=== PATIENT | male | born 1975 ===

== ENCOUNTER 2021-05-15 11:11 | Inpatient (IN) | payer SELFPAY ==
[2021-05-15] MEDS ORDERED: IPRATROPIUM 0.02% NEBU 2.5 ML IH ONE ×2 (11:36→12:50)
[2021-05-15] MEDS ORDERED: ALBUTEROL 2.5 MG/3 ML NEBU IH ONE ×2 (11:36→13:15)
[2021-05-15] MEDS ORDERED: MAGNESIUM SULFATE 2 GM/50 ML BAG IV ONE (12:34)
--- NOTE | 2021-05-15 12:38 | Emergency Department Report ---
ED Asthma HPI - General Chief Complaint: Adult Asthma Stated Complaint: ASTHMA PUI?: Yes Source: patient Mode of arrival: Ambulatory Limitations: Language Barrier - History of Present Illness MD Complaint: "asthma attack", shortness of breath, wheezing -: Gradual, days(s) Asthma History: adult onset, history of frequent attac Severity: moderate Context: recent URI, allergen exposure Associated Symptoms: dry cough. denies: fever, leg edema, syncope Treatments Prior to Arrival: inhaled bronchodilator, IV steroid, oxygen - Related Data Current Asthma Therapy: none Allergies Allergy/AdvReac Type Severity Reaction Status Date / Time No Known Allergies Allergy Unverified 05/15/21 13:05 ED Review of Systems ROS: Stated complaint: ASTHMA Other details as noted in HPI Comment: All other systems reviewed and negative Constitutional: denies: chills, fever Eyes: denies: eye pain, eye discharge, vision change ENT: denies: ear pain, throat pain Respiratory: see HPI, cough, shortness of breath, SOB with exertion, SOB at rest, wheezing Cardiovascular: denies: chest pain, palpitations Endocrine: no symptoms reported Gastrointestinal: denies: abdominal pain, nausea, diarrhea Genitourinary: denies: urgency, dysuria Musculoskeletal: denies: back pain, joint swelling, arthralgia Skin: denies: rash, lesions Neurological: denies: headache, weakness, paresthesias Psychiatric: denies: anxiety, depression Hematological/Lymphatic: denies: easy bleeding, easy bruising ED Past Medical Hx - Past Medical History Previous Medical History?: Yes Hx Asthma: Yes - Surgical History Past Surgical History?: No - Family History Family history: asthma - Social History Smoking Status: Never Smoker Substance Use Type: None ED Physical Exam - General Limitations: Language Barrier General appearance: in distress - Head Head exam: Present: atraumatic, normal inspection - Eye Eye exam: Present: normal appearance, PERRL, EOMI - ENT ENT exam: Present: normal exam, normal orophraynx, mucous membranes dry, TM's normal bilaterally, normal external ear exam - Neck Neck exam: Present: normal inspection, full ROM - Respiratory Respiratory exam: Present: wheezes, decreased breath sounds (Patient with diminished breath sounds and bilateral wheezes.) - Cardiovascular Cardiovascular Exam: Present: regular rate - GI/Abdominal GI/Abdominal exam: Present: soft. Absent: distended, tenderness, guarding, rebound - Extremities Exam Extremities exam: Present: normal inspection - Back Exam Back exam: Present: normal inspection, full ROM - Neurological Exam Neurological exam: Present: alert, oriented X3, CN II-XII intact, normal gait - Psychiatric Psychiatric exam: Present: normal affect, normal mood - Skin Skin exam: Present: warm, dry ED Course Vital Signs 05/15/21 05/15/21 05/15/21 11:34 11:45 12:00 Pulse Rate 96 H 93 H 95 H Pulse Rate [ Anterior Bilateral Throughout] Respiratory 14 15 20 Rate Respiratory Rate [Anterior Bilateral Throughout] Blood Pressure 140/78 149/71 O2 Sat by Pulse 88 96 97 Oximetry 05/15/21 05/15/21 05/15/21 12:01 12:15 12:30 Pulse Rate 100 H 99 H Pulse Rate [ Anterior Bilateral Throughout] Respiratory 16 22 Rate Respiratory Rate [Anterior Bilateral Throughout] Blood Pressure 129/79 129/79 O2 Sat by Pulse 96 97 97 Oximetry 05/15/21 05/15/21 05/15/21 12:45 13:00 13:01 Pulse Rate 107 H 104 H Pulse Rate [ 100 H Anterior Bilateral Throughout] Respiratory 20 26 H Rate Respiratory 20 Rate [Anterior Bilateral Throughout] Blood Pressure 139/74 123/78 O2 Sat by Pulse 98 100 Oximetry 05/15/21 05/15/21 05/15/21 13:15 13:31 13:47 Pulse Rate 104 H 99 H 102 H Pulse Rate [ Anterior Bilateral Throughout] Respiratory 15 21 19 Rate Respiratory Rate [Anterior Bilateral Throughout] Blood Pressure 118/53 121/79 O2 Sat by Pulse 98 99 96 Oximetry 05/15/21 05/15/21 05/15/21 14:00 14:16 14:30 Pulse Rate 101 H 98 H 96 H Pulse Rate [ Anterior Bilateral Throughout] Respiratory 20 15 19 Rate Respiratory Rate [Anterior Bilateral Throughout] Blood Pressure 123/69 110/73 117/64 O2 Sat by Pulse 97 99 94 Oximetry 05/15/21 05/15/21 05/15/21 14:46 15:00 15:16 Pulse Rate 94 H 98 H 90 Pulse Rate [ Anterior Bilateral Throughout] Respiratory 16 19 18 Rate Respiratory Rate [Anterior Bilateral Throughout] Blood Pressure 115/54 95/41 103/45 O2 Sat by Pulse 97 96 96 Oximetry 05/15/21 05/15/21 05/15/21 15:30 15:46 16:00 Pulse Rate 89 91 H 87 Pulse Rate [ Anterior Bilateral Throughout] Respiratory 19 21 22 Rate Respiratory Rate [Anterior Bilateral Throughout] Blood Pressure 97/42 105/48 106/29 O2 Sat by Pulse 94 94 95 Oximetry 05/15/21 16:46 Pulse Rate Pulse Rate [ Anterior Bilateral Throughout] Respiratory Rate Respiratory Rate [Anterior Bilateral Throughout] Blood Pressure O2 Sat by Pulse 96 Oximetry ED Medical Decision Making - Lab Data Result diagrams: 05/15/21 12:51 05/15/21 12:51 - EKG Data EKG shows normal: sinus rhythm Rate: normal - EKG Data When compared to previous EKG there are: no significant change Interpretation: no acute changes, normal EKG - Differential Diagnosis Asthma exacerbation, pneumonia, Covid pneumonia, URI, allergic bronchospasm Critical care attestation.: If time is entered above; I have spent that time in minutes in the direct care of this critically ill patient, excluding procedure time. ED Disposition Clinical Impression: Severe asthma with acute exacerbation, Pneumonia Disposition: ADMITTED INPATIENT Is pt being admited?: Yes Does the pt Need Aspirin: No Condition: Fair Instructions: Bacterial Pneumonia (ED) Referrals: PRIMARY CARE, [Primary Care Provider] - 3-5 Days
[2021-05-15] MEDS ORDERED: IPRATROPIUM/ALBUTEROL SULFATE 3 ML AMPUL.NEB IH ONE (13:15)
[2021-05-15 13:50] LABS: Basophils % (Auto) 0.2 % (0.0-1.8); Eosinophils # (Auto) 0.2 K/mm3 (0.0-0.4); Eosinophils % (Auto) 1.7 % (0.0-4.3); Hemoglobin 15.9 gm/dl (11.8-15.2); Lymphocytes # (Auto) 1.9 K/mm3 (1.2-5.4); Lymphocytes % (Auto) 14.2 % (13.4-35.0); Mean Corpuscular HGB Conc 34 % (32-34); Mean Corpuscular Volume 88 fl (84-94); Monocytes # (Auto) 1.1 K/mm3 (0.0-0.8); Monocytes % (Auto) 8.4 % (0.0-7.3); Platelet Count 159 K/mm3 (140-440); Red Blood Count 5.26 M/mm3 (3.65-5.03); Red Cell Distribution Width 13.5 % (13.2-15.2)
[2021-05-15] MEDS ORDERED: methylPREDNISolone Sod Succinate 125 MG/2 ML INJ IV ONE (14:00)
[2021-05-15 14:12] LABS: Alanine Aminotransferase 31 units/L (7-56); Albumin 4.3 g/dL (3.9-5); BUN/Creatinine Ratio 10; Blood Urea Nitrogen 10 mg/dL (9-20); Calcium 8.9 mg/dL (8.4-10.2); Hemolysis Index 4
[2021-05-15 16:33] LABS: ABG Base Excess -1.9 mmol/L (-2.0-3.0); ABG HCO3 22.4 mmol/L (20.0-26.0); ABG Methemoglobin 0.7 % (0.0-1.5); ABG Oxygen Saturation 96.7 % (95.0-99.0); ABG PH 7.4 pH Units (7.350-7.450); ABG PO2 81.1 mm Hg (80.0-90.0)
--- NOTE | 2021-05-15 16:39 | XRay Report ---
XR chest 1V ap INDICATION / CLINICAL INFORMATION: SHORTNESS OF BREATH. COMPARISON: None available. FINDINGS: SUPPORT DEVICES: None. HEART /PULMONARY VASCULATURE: No significant abnormality. LUNGS / PLEURA: Streaky bibasilar airspace opacities, left greater than right. No sizable pleural eff usion. No pneumothorax. IMPRESSION: Streaky left greater than right bibasilar airspace opacities, may reflect atelectasis or pneumonia. Signer Name: Carlos Hamilton MD Signed: 05/15/2021 4:35 PM Workstation Name: [id number]
[2021-05-15] MEDS ORDERED: ACETAMINOPHEN 325 MG TAB PO PRN (18:49)
[2021-05-15] MEDS ORDERED: ONDANSETRON 4 MG/2 ML INJ IV PRN (18:49)
--- NOTE | 2021-05-15 18:49 | History and Physical Report ---
History of Present Illness Date of examination: 05/15/21 Date of admission: 05/15/2021 Chief complaint: Severe wheezing and low oxygen saturations of 88% History of present illness: 45-year-old Yoruba-speaking male comes in for increasing shortness of breath and wheezing. It started yesterday. Not responding to home bronchodilators. No fever or chills. Cough productive of mucoid sputum. Patient was given multiple nebulizer treatments in the emergency room and IV steroids with no response. Patient continued to be wheezing. Hence patient being admitted. No exposure to Covid. Covid vaccination status was not asked. No exacerbating or relieving factors. - Past Medical History Previous Medical History?: Yes --Asthma: Yes - Surgical History --Past Surgical History?: No - Family History --Family history: asthma - Social History --Smoking Status: Never Smoker --Substance Use Type: None Review of Systems ROS: Stated complaint: ASTHMA Other details as noted in HPI Comment: All other systems reviewed and negative Constitutional: denies: chills, fever Eyes: denies: eye pain, eye discharge, vision change ENT: denies: ear pain, throat pain Respiratory: see HPI, cough, shortness of breath, SOB with exertion, SOB at rest, wheezing Cardiovascular: denies: chest pain, palpitations Endocrine: no symptoms reported Gastrointestinal: denies: abdominal pain, nausea, diarrhea Genitourinary: denies: urgency, dysuria Musculoskeletal: denies: back pain, joint swelling, arthralgia Skin: denies: rash, lesions Neurological: denies: headache, weakness, paresthesias Psychiatric: denies: anxiety, depression Hematological/Lymphatic: denies: easy bleeding, easy bruising Medications and Allergies Allergies Allergy/AdvReac Type Severity Reaction Status Date / Time No Known Allergies Allergy Unverified 05/15/21 13:05 Exam - Constitutional Vitals: Temp Pulse Resp BP Pulse Ox 85 20 110/54 95 05/15/21 18:30 05/15/21 18:30 05/15/21 18:30 05/15/21 18:30 General appearance: Present: severe distress, well-nourished - EENT Eyes: Present: PERRL ENT: hearing intact, clear oral mucosa - Neck Neck: Present: supple, normal ROM - Respiratory Respiratory effort: normal Respiratory: bilateral: diminished, rhonchi, wheezing - Cardiovascular Heart rate: 78 Rhythm: regular Heart Sounds: Present: S1 & S2. Absent: rub, click - Extremities Extremities: pulses symmetrical, No edema Peripheral Pulses: within normal limits - Abdominal General gastrointestinal: Present: soft, non-tender, non-distended, normal bowel sounds Male genitourinary: Present: normal - Integumentary Integumentary: Present: clear, warm, dry - Musculoskeletal Musculoskeletal: gait normal, strength equal bilaterally - Psychiatric Psychiatric: appropriate mood/affect, intact judgment & insight - Neurologic Neurologic: CNII-XII intact, moves all extremities - Allied Health Allied health notes reviewed: nursing, case management HEART Score - HEART Score Troponin: Troponin T < 0.010 ng/mL (0.00-0.029) 05/15/21 12:51 Results - Labs CBC & Chem 7: 05/16/21 05:23 05/15/21 12:51 Labs: Laboratory Last Values WBC 13.4 K/mm3 (4.5-11.0) H 05/15/21 12:51 RBC 5.26 M/mm3 (3.65-5.03) H 05/15/21 12:51 Hgb 15.9 gm/dl (11.8-15.2) H 05/15/21 12:51 Hct 46.0 % (35.5-45.6) H 05/15/21 12:51 MCV 88 fl (84-94) 05/15/21 12:51 MCH 30 pg (28-32) 05/15/21 12:51 MCHC 34 % (32-34) 05/15/21 12:51 RDW 13.5 % (13.2-15.2) 05/15/21 12:51 Plt Count 159 K/mm3 (140-440) 05/15/21 12:51 Lymph % (Auto) 14.2 % (13.4-35.0) 05/15/21 12:51 Haines % (Auto) 8.4 % (0.0-7.3) H 05/15/21 12:51 Eos % (Auto) 1.7 % (0.0-4.3) 05/15/21 12:51 Baso % (Auto) 0.2 % (0.0-1.8) 05/15/21 12:51 Lymph # (Auto) 1.9 K/mm3 (1.2-5.4) 05/15/21 12:51 Haines # (Auto) 1.1 K/mm3 (0.0-0.8) H 05/15/21 12:51 Eos # (Auto) 0.2 K/mm3 (0.0-0.4) 05/15/21 12:51 Baso # (Auto) 0.0 K/mm3 (0.0-0.1) 05/15/21 12:51 Seg Neutrophils % 75.5 % (40.0-70.0) H 05/15/21 12:51 Seg Neutrophils # 10.1 K/mm3 (1.8-7.7) H 05/15/21 12:51 ABG pH 7.400 pH Units (7.350-7.450) 05/15/21 16:17 ABG pCO2 37.0 mm Hg 05/15/21 16:17 ABG pO2 81.1 mm Hg (80.0-90.0) 05/15/21 16:17 ABG HCO3 22.4 mmol/L (20.0-26.0) 05/15/21 16:17 ABG O2 Saturation 96.7 % (95.0-99.0) 05/15/21 16:17 ABG O2 Content 21.4 (0.0-44) 05/15/21 16:17 ABG Base Excess -1.9 mmol/L (-2.0-3.0) 05/15/21 16:17 ABG Hemoglobin 16.0 gm/dl (14.0-18.0) 05/15/21 16:17 ABG Carboxyhemoglobin 1.3 % (0.0-5.0) 05/15/21 16:17 ABG Methemoglobin 0.7 % (0.0-1.5) 05/15/21 16:17 Oxyhemoglobin 94.8 % (95.0-99.0) L 05/15/21 16:17 FiO2 28 % 05/15/21 16:17 Sodium 140 mmol/L (137-145) 05/15/21 12:51 Potassium 3.5 mmol/L (3.6-5.0) L 05/15/21 12:51 Chloride 102.8 mmol/L (98-107) 05/15/21 12:51 Carbon Dioxide 24 mmol/L (22-30) 05/15/21 12:51 Anion Gap 17 mmol/L 05/15/21 12:51 BUN 10 mg/dL (9-20) 05/15/21 12:51 Creatinine 1.0 mg/dL (0.8-1.3) 05/15/21 12:51 Estimated GFR > 60 ml/min 05/15/21 12:51 BUN/Creatinine Ratio 10 % 05/15/21 12:51 Glucose 97 mg/dL (75-100) 05/15/21 12:51 Calcium 8.9 mg/dL (8.4-10.2) 05/15/21 12:51 Total Bilirubin 0.40 mg/dL (0.1-1.2) 05/15/21 12:51 AST 22 units/L (5-40) 05/15/21 12:51 ALT 31 units/L (7-56) 05/15/21 12:51 Alkaline Phosphatase 62 units/L (35-129) 05/15/21 12:51 Troponin T < 0.010 ng/mL (0.00-0.029) 05/15/21 12:51 Total Protein 7.5 g/dL (6.3-8.2) 05/15/21 12:51 Albumin 4.3 g/dL (3.9-5) 05/15/21 12:51 Albumin/Globulin Ratio 1.3 % 05/15/21 12:51 Short CBC 05/15/21 05/16/21 Range/Units 12:51 05:23 WBC 13.4 H 12.8 H (4.5-11.0) K/mm3 Hgb 15.9 H 15.2 (11.8-15.2) gm/dl Hct 46.0 H 45.4 (35.5-45.6) % Plt Count 159 181 (140-440) K/mm3 BMP 05/15/21 12:51 Sodium 140 Potassium 3.5 L Chloride 102.8 Carbon Dioxide 24 BUN 10 Creatinine 1.0 Glucose 97 Calcium 8.9 Cardiac Enzymes 05/15/21 Range/Units 12:51 Troponin T < 0.010 (0.00-0.029) ng/mL Liver Function 05/15/21 Range/Units 12:51 Total Bilirubin 0.40 (0.1-1.2) mg/dL AST 22 (5-40) units/L ALT 31 (7-56) units/L Alkaline Phosphatase 62 (35-129) units/L Albumin 4.3 (3.9-5) g/dL Assessment and Plan Advance Directives: Yes (Full code) VTE prophylaxis?: Chemical Plan of care discussed with patient/family: Yes - Patient Problems (1) Acute respiratory failure with hypoxia Current Visit: Yes Status: Acute Plan to address problem: Patient is on BiPAP Continue steroids, DuoNebs [id number] and as needed and IV antibiotics Intubation if necessary (2) Severe asthma with acute exacerbation Current Visit: Yes Status: Acute Plan to address problem: Patient initiated on IV steroids, duo nebs [id number] and as needed and IV antibiotics in the form of Levaquin. (3) Hypokalemia Current Visit: Yes Status: Acute Plan to address problem: Borderline Supplemented (4) DVT prophylaxis Current Visit: Yes Status: Acute Plan to address problem: On anticoagulation GI prophylaxis (5) Advance care planning Current Visit: Yes Status: Acute Plan to address problem: Disease education conducted, care plan discussed, diagnosis discussed, prognosis discussed. Patient is full code. Patient acknowledges understanding and agreement with care plan +30 minutes.
[2021-05-15] MEDS ORDERED: oxyCODONE /ACETAMINOPHEN 5-325MG TAB PO PRN (18:56)
[2021-05-15] MEDS ORDERED: MORPHINE 2 MG/1 ML INJ IV PRN (18:56)
[2021-05-15] MEDS ORDERED: IPRATROPIUM/ALBUTEROL SULFATE 3 ML AMPUL.NEB IH PRN (18:59)
[2021-05-15] MEDS ORDERED: SODIUM CHLORIDE 0.9% 1000 ML 1,000 ML IV SCH (19:00)
[2021-05-15] MEDS ORDERED: ALBUTEROL 2.5 MG/3 ML NEBU IH PRN (19:28)
[2021-05-15] MEDS ORDERED: FAMOTIDINE 20 MG/2 ML INJ IV SCH (22:00)
[2021-05-15] MEDS: methylPREDNISolone Sod Succinate 125 MG/2 ML INJ IV SCH (23:47)
[2021-05-15] MEDS: HEPARIN 5,000 UNIT/1 ML VIAL SUB-Q SCH (23:47)
[2021-05-16 06:09] LABS: Basophils % (Auto) 0.1 % (0.0-1.8); Eosinophils % (Auto) 0.1 % (0.0-4.3); Hematocrit 45.4 % (35.5-45.6); Hemoglobin 15.2 gm/dl (11.8-15.2); Lymphocytes # (Auto) 1.2 K/mm3 (1.2-5.4); Lymphocytes % (Auto) 9.4 % (13.4-35.0); Mean Corpuscular HGB Conc 34 % (32-34); Mean Corpuscular Volume 87 fl (84-94); Monocytes # (Auto) 0.2 K/mm3 (0.0-0.8); Monocytes % (Auto) 1.4 % (0.0-7.3); Platelet Count 181 K/mm3 (140-440); Red Cell Distribution Width 13.3 % (13.2-15.2)
[2021-05-16] MEDS ORDERED: POTASSIUM CHLORIDE ER 20 MEQ TAB PO ONE (06:28)
[2021-05-16 06:32] LABS: Alanine Aminotransferase 26 units/L (7-56); BUN/Creatinine Ratio 18; Blood Urea Nitrogen 16 mg/dL (9-20); Hemolysis Index 8
[2021-05-16] MEDS: methylPREDNISolone Sod Succinate 125 MG/2 ML INJ IV SCH ×3 (06:39→21:21)
--- NOTE | 2021-05-16 10:20 | Progress Note ---
Assessment and Plan Assessment and plan: --Mota PCR test negative -- Acute respiratory failure with hypoxia Current Visit: Yes Status: Acute Requiring BiPAP at the time of admission Currently patient is on 2 to 3 L nasal cannula oxygen Continue steroids, DuoNebs [id number] and as needed and IV antibiotics Supportive care, home O2 evaluation at discharge -- Acute exacerbation of bronchial asthma . Current Visit: Yes Status: Acute Nebulizers, oxygen titrate O2 sats to more than 90%, tapering dose of steroids IV antibiotics, inhalation steroids and supportive care Pulmonary evaluation if needed --Bilateral pneumonia/ community-acquired Current Visit: Yes Status: Acute on chest x-ray; bilateral pneumonia/atelectasis Empiric antibiotics,Follow cultures Oxygen titrate O2 sats to more than 90% Treat underlying asthma exacerbation -- Hypokalemia Current Visit: Yes Status: Acute Supplemented, monitor electrolytes --DVT prophylaxis Current Visit: Yes Status: Acute Subcu heparin --Obesity; BMI 31.0; Advised diet modification, exercise as tolerated And weight reduction when medically stable advance care planning Current Visit: Yes Status: Acute Plan to address problem: Disease education conducted, care plan discussed, diagnosis discussed, prognosis discussed. Patient is full code. Patient acknowledges understanding and agreement with care plan +30 minutes. Plan of care reviewed with patient and his nurse History Interval history: I have seen and examined the patient at the bedside patient's chart and medications reviewed Patient feels slightly better vital signs noted Hospitalist Physical - Constitutional Vitals: Temp Pulse Resp BP Pulse Ox 80 16 116/80 97 05/15/21 23:40 05/15/21 23:40 05/15/21 23:40 05/16/21 07:51 General appearance: Present: severe distress, well-nourished - EENT Eyes: Present: PERRL, EOM intact - Neck Neck: Present: supple, normal ROM - Respiratory Respiratory effort: normal Respiratory: bilateral: diminished, negative: rales, rhonchi, wheezing - Cardiovascular Rhythm: regular Heart Sounds: Present: S1 & S2 - Extremities Extremities: no ischemia, No edema - Abdominal General gastrointestinal: soft, non-tender, non-distended, normal bowel sounds - Integumentary Integumentary: Present: clear, warm - Psychiatric Psychiatric: appropriate mood/affect, cooperative - Neurologic Neurologic: CNII-XII intact, moves all extremities HEART Score - HEART Score Troponin: Troponin T < 0.010 ng/mL (0.00-0.029) 05/15/21 12:51 Results - Labs CBC & Chem 7: 05/16/21 05:23 05/16/21 05:23 Labs: Laboratory Last Values WBC 12.8 K/mm3 (4.5-11.0) H 05/16/21 05:23 RBC 5.20 M/mm3 (3.65-5.03) H 05/16/21 05:23 Hgb 15.2 gm/dl (11.8-15.2) 05/16/21 05:23 Hct 45.4 % (35.5-45.6) 05/16/21 05:23 MCV 87 fl (84-94) 05/16/21 05:23 MCH 29 pg (28-32) 05/16/21 05:23 MCHC 34 % (32-34) 05/16/21 05:23 RDW 13.3 % (13.2-15.2) 05/16/21 05:23 Plt Count 181 K/mm3 (140-440) 05/16/21 05:23 Lymph % (Auto) 9.4 % (13.4-35.0) L 05/16/21 05:23 Person % (Auto) 1.4 % (0.0-7.3) 05/16/21 05:23 Eos % (Auto) 0.1 % (0.0-4.3) 05/16/21 05:23 Baso % (Auto) 0.1 % (0.0-1.8) 05/16/21 05:23 Lymph # (Auto) 1.2 K/mm3 (1.2-5.4) 05/16/21 05:23 Person # (Auto) 0.2 K/mm3 (0.0-0.8) 05/16/21 05:23 Eos # (Auto) 0.0 K/mm3 (0.0-0.4) 05/16/21 05:23 Baso # (Auto) 0.0 K/mm3 (0.0-0.1) 05/16/21 05:23 Seg Neutrophils % 89.0 % (40.0-70.0) H 05/16/21 05:23 Seg Neutrophils # 11.4 K/mm3 (1.8-7.7) H 05/16/21 05:23 ABG pH 7.400 pH Units (7.350-7.450) 05/15/21 16:17 ABG pCO2 37.0 mm Hg 05/15/21 16:17 ABG pO2 81.1 mm Hg (80.0-90.0) 05/15/21 16:17 ABG HCO3 22.4 mmol/L (20.0-26.0) 05/15/21 16:17 ABG O2 Saturation 96.7 % (95.0-99.0) 05/15/21 16:17 ABG O2 Content 21.4 (0.0-44) 05/15/21 16:17 ABG Base Excess -1.9 mmol/L (-2.0-3.0) 05/15/21 16:17 ABG Hemoglobin 16.0 gm/dl (14.0-18.0) 05/15/21 16:17 ABG Carboxyhemoglobin 1.3 % (0.0-5.0) 05/15/21 16:17 ABG Methemoglobin 0.7 % (0.0-1.5) 05/15/21 16:17 Oxyhemoglobin 94.8 % (95.0-99.0) L 05/15/21 16:17 FiO2 28 % 05/15/21 16:17 Sodium 140 mmol/L (137-145) 05/16/21 05:23 Potassium 4.3 mmol/L (3.6-5.0) D 05/16/21 05:23 Chloride 106.4 mmol/L (98-107) 05/16/21 05:23 Carbon Dioxide 20 mmol/L (22-30) L 05/16/21 05:23 Anion Gap 18 mmol/L 05/16/21 05:23 BUN 16 mg/dL (9-20) 05/16/21 05:23 Creatinine 0.9 mg/dL (0.8-1.3) 05/16/21 05:23 Estimated GFR > 60 ml/min 05/16/21 05:23 BUN/Creatinine Ratio 18 % 05/16/21 05:23 Glucose 176 mg/dL (75-100) H 05/16/21 05:23 Calcium 9.0 mg/dL (8.4-10.2) 05/16/21 05:23 Total Bilirubin 0.40 mg/dL (0.1-1.2) 05/16/21 05:23 AST 19 units/L (5-40) 05/16/21 05:23 ALT 26 units/L (7-56) 05/16/21 05:23 Alkaline Phosphatase 61 units/L (35-129) 05/16/21 05:23 Troponin T < 0.010 ng/mL (0.00-0.029) 05/15/21 12:51 Total Protein 7.3 g/dL (6.3-8.2) 05/16/21 05:23 Albumin 4.0 g/dL (3.9-5) 05/16/21 05:23 Albumin/Globulin Ratio 1.2 % 05/16/21 05:23 Flores/IV: Voiding Method Toilet Active Medications - Current Medications Current Medications: Generic Name Dose Route Start Last Admin Trade Name Freq PRN Reason Stop Dose Admin Acetaminophen 650 mg 05/15/21 18:49 Acetaminophen 325 Mg Tab PO Q4H PRN Pain MILD(1-3)/Fever >100.5/SLOAN Albuterol 2.5 mg 05/15/21 19:28 Albuterol 2.5 Mg/3 Ml Nebu IH Q3HRT PRN Wheezing Albuterol/Ipratropium 1 ampul 05/15/21 20:00 Ipratropium/Albuterol Sulfate 3 Ml Ampul.Neb IH QIDRT VAMSI Famotidine 20 mg 05/16/21 10:00 Famotidine 20 Mg Tab PO BID VAMSI Heparin Sodium (Porcine) 5,000 unit 05/15/21 22:00 05/15/21 23:47 Heparin 5,000 Unit/1 Ml Vial SUB-Q 5,000 unit Q12HR VAMSI Administration Levofloxacin/Dextrose 750 mg in 150 mls @ 100 mls/hr 05/16/21 10:00 Levaquin 750mg/150ml IV 05/20/21 11:29 Q24HR [facility] Protocol Methylprednisolone Sodium Succinate 80 mg 05/15/21 22:00 05/16/21 06:39 Methylprednisolone Sod Succinate 125 Mg/2 Ml Inj IV 80 mg Q8HR VAMSI Administration Morphine Sulfate 2 mg 05/15/21 18:56 Morphine 2 Mg/1 Ml Inj IV Q4H PRN Pain, Moderate (4-6) Ondansetron HCl 4 mg 05/15/21 18:49 Ondansetron 4 Mg/2 Ml Inj IV Q8H PRN Nausea And Vomiting Oxycodone/Acetaminophen 1 tab 05/15/21 18:56 Oxycodone /Acetaminophen 5-325mg Tab PO Q6H PRN Pain, Moderate (4-6) Sodium Chloride 10 ml 05/15/21 22:00 05/15/21 23:47 Sodium Chloride 0.9% 10 Ml Flush Syringe IV 10 ml BID VAMSI Administration Sodium Chloride 10 ml 05/15/21 18:49 Sodium Chloride 0.9% 10 Ml Flush Syringe IV PRN PRN LINE FLUSH
[2021-05-16] MEDS: FAMOTIDINE 20 MG TAB PO SCH ×2 (11:34→21:21)
[2021-05-16] MEDS: HEPARIN 5,000 UNIT/1 ML VIAL SUB-Q SCH ×2 (11:35→21:21)
--- NOTE | 2021-05-16 11:40 | Electrocardiograph Report ---
[facility] Test Date: 2021-05-15 Test Time: 14:15:04 Pat Name: IVY TANNER Department: Room: A356 Gender: M Service Vehicle Operator: JUSTIN : 1975 Requested By: MARCIE HORTON Order Number: [id number] Reading MD: Andrea Negro Measurements Intervals [place] Rate: 98 P: 50 DC: 138 QRS: 33 QRSD: 70 T: 33 QT: 318 QTc: 405 Interpretive Statements Sinus rhythm No previous ECG available for comparison Electronically Signed On 05-16-2021 11:39:49 EDT by Andrea Negro
[2021-05-16] MEDS: IPRATROPIUM/ALBUTEROL SULFATE 3 ML AMPUL.NEB IH SCH (20:31)
[2021-05-17] MEDS: methylPREDNISolone Sod Succinate 125 MG/2 ML INJ IV SCH (05:17)
[2021-05-17] MEDS ORDERED: methylPREDNISolone Sod Succinate 125 MG/2 ML INJ IV SCH (08:35)
--- NOTE | 2021-05-17 08:38 | Progress Note ---
Assessment and Plan Assessment and plan: --Mota PCR test negative -- Acute respiratory failure with hypoxia Current Visit: Yes Status: Acute Requiring BiPAP at the time of admission Currently patient is on 2 to 3 L nasal cannula oxygen Continue steroids, DuoNebs [id number] and as needed and IV antibiotics Supportive care, home O2 evaluation at discharge -- Acute exacerbation of bronchial asthma . Current Visit: Yes Status: Acute Nebulizers, oxygen titrate O2 sats to more than 90%, tapering dose of steroids IV antibiotics, inhalation steroids and supportive care Pulmonary evaluation if needed --Bilateral pneumonia/ community-acquired Current Visit: Yes Status: Acute on chest x-ray; bilateral pneumonia/atelectasis Empiric antibiotics,Follow cultures Oxygen titrate O2 sats to more than 90% Treat underlying asthma exacerbation -- Hypokalemia Current Visit: Yes Status: Acute Supplemented, monitor electrolytes --DVT prophylaxis Current Visit: Yes Status: Acute Subcu heparin --Obesity; BMI 31.0; Advised diet modification, exercise as tolerated And weight reduction when medically stable advance care planning Current Visit: Yes Status: Acute Plan to address problem: Disease education conducted, care plan discussed, diagnosis discussed, prognosis discussed. Patient is full code. Patient acknowledges understanding and agreement with care plan +30 minutes. Plan of care reviewed with patient and his nurse To monitor the patient and adjust management as needed Wean oxygen as tolerated Home O2 evaluation Possible discharge in 1 to 2 days if stable History Interval history: I have seen and examined this patient at the bedside this morning Patient's chart and medications reviewed Patient feels slightly better, Mild wheeze Still requiring 2 to 3 L of nasal cannula oxygen Not in acute distress Vital signs reviewed Hospitalist Physical - Constitutional Vitals: Temp Pulse Resp BP Pulse Ox 98.8 F 77 18 106/60 95 05/17/21 04:04 05/17/21 04:04 05/17/21 04:04 05/17/21 04:04 05/17/21 04:04 General appearance: Present: mild distress, well-nourished - EENT Eyes: Present: PERRL, EOM intact - Neck Neck: Present: supple, normal ROM - Respiratory Respiratory effort: normal Respiratory: bilateral: diminished, rhonchi, wheezing, negative: rales - Cardiovascular Rhythm: regular Heart Sounds: Present: S1 & S2 - Extremities Extremities: no ischemia, No edema - Abdominal General gastrointestinal: soft, non-tender, non-distended, normal bowel sounds - Integumentary Integumentary: Present: clear, warm - Psychiatric Psychiatric: appropriate mood/affect, cooperative - Neurologic Neurologic: moves all extremities HEART Score - HEART Score Troponin: Troponin T < 0.010 ng/mL (0.00-0.029) 05/15/21 12:51 Results - Labs CBC & Chem 7: 05/16/21 05:23 05/16/21 05:23 Labs: Laboratory Last Values WBC 12.8 K/mm3 (4.5-11.0) H 05/16/21 05:23 RBC 5.20 M/mm3 (3.65-5.03) H 05/16/21 05:23 Hgb 15.2 gm/dl (11.8-15.2) 05/16/21 05:23 Hct 45.4 % (35.5-45.6) 05/16/21 05:23 MCV 87 fl (84-94) 05/16/21 05:23 MCH 29 pg (28-32) 05/16/21 05:23 MCHC 34 % (32-34) 05/16/21 05:23 RDW 13.3 % (13.2-15.2) 05/16/21 05:23 Plt Count 181 K/mm3 (140-440) 05/16/21 05:23 Lymph % (Auto) 9.4 % (13.4-35.0) L 05/16/21 05:23 [place] % (Auto) 1.4 % (0.0-7.3) 05/16/21 05:23 Eos % (Auto) 0.1 % (0.0-4.3) 05/16/21 05:23 Baso % (Auto) 0.1 % (0.0-1.8) 05/16/21 05:23 Lymph # (Auto) 1.2 K/mm3 (1.2-5.4) 05/16/21 05:23 [place] # (Auto) 0.2 K/mm3 (0.0-0.8) 05/16/21 05:23 Eos # (Auto) 0.0 K/mm3 (0.0-0.4) 05/16/21 05:23 Baso # (Auto) 0.0 K/mm3 (0.0-0.1) 05/16/21 05:23 Seg Neutrophils % 89.0 % (40.0-70.0) H 05/16/21 05:23 Seg Neutrophils # 11.4 K/mm3 (1.8-7.7) H 05/16/21 05:23 ABG pH 7.400 pH Units (7.350-7.450) 05/15/21 16:17 ABG pCO2 37.0 mm Hg 05/15/21 16:17 ABG pO2 81.1 mm Hg (80.0-90.0) 05/15/21 16:17 ABG HCO3 22.4 mmol/L (20.0-26.0) 05/15/21 16:17 ABG O2 Saturation 96.7 % (95.0-99.0) 05/15/21 16:17 ABG O2 Content 21.4 (0.0-44) 05/15/21 16:17 ABG Base Excess -1.9 mmol/L (-2.0-3.0) 05/15/21 16:17 ABG Hemoglobin 16.0 gm/dl (14.0-18.0) 05/15/21 16:17 ABG Carboxyhemoglobin 1.3 % (0.0-5.0) 05/15/21 16:17 ABG Methemoglobin 0.7 % (0.0-1.5) 05/15/21 16:17 Oxyhemoglobin 94.8 % (95.0-99.0) L 05/15/21 16:17 FiO2 28 % 05/15/21 16:17 Sodium 140 mmol/L (137-145) 05/16/21 05:23 Potassium 4.3 mmol/L (3.6-5.0) D 05/16/21 05:23 Chloride 106.4 mmol/L (98-107) 05/16/21 05:23 Carbon Dioxide 20 mmol/L (22-30) L 05/16/21 05:23 Anion Gap 18 mmol/L 05/16/21 05:23 BUN 16 mg/dL (9-20) 05/16/21 05:23 Creatinine 0.9 mg/dL (0.8-1.3) 05/16/21 05:23 Estimated GFR > 60 ml/min 05/16/21 05:23 BUN/Creatinine Ratio 18 % 05/16/21 05:23 Glucose 176 mg/dL (75-100) H 05/16/21 05:23 Calcium 9.0 mg/dL (8.4-10.2) 05/16/21 05:23 Total Bilirubin 0.40 mg/dL (0.1-1.2) 05/16/21 05:23 AST 19 units/L (5-40) 05/16/21 05:23 ALT 26 units/L (7-56) 05/16/21 05:23 Alkaline Phosphatase 61 units/L (35-129) 05/16/21 05:23 Troponin T < 0.010 ng/mL (0.00-0.029) 05/15/21 12:51 Total Protein 7.3 g/dL (6.3-8.2) 05/16/21 05:23 Albumin 4.0 g/dL (3.9-5) 05/16/21 05:23 Albumin/Globulin Ratio 1.2 % 05/16/21 05:23 Coronavirus (PCR) Negative (Negative) 05/16/21 12:00 Microbiology: Microbiology 05/16/21 20:56 Peripheral/Venous Blood Culture - Preliminary Culture in Progress 05/16/21 20:56 Peripheral/Venous Blood Culture - Preliminary Culture in Progress Flores/IV: Voiding Method Toilet Active Medications - Current Medications Current Medications: Generic Name Dose Route Start Last Admin Trade Name Freq PRN Reason Stop Dose Admin Acetaminophen 650 mg 05/15/21 18:49 Acetaminophen 325 Mg Tab PO Q4H PRN Pain MILD(1-3)/Fever >100.5/SLOAN Albuterol 2.5 mg 05/15/21 19:28 Albuterol 2.5 Mg/3 Ml Nebu IH Q3HRT PRN Wheezing Albuterol/Ipratropium 1 ampul 05/15/21 20:00 05/16/21 20:31 Ipratropium/Albuterol Sulfate 3 Ml Ampul.Neb IH 1 ampul QIDRT VAMSI Administration Famotidine 20 mg 05/16/21 10:00 05/16/21 21:21 Famotidine 20 Mg Tab PO 20 mg BID VAMSI Administration Heparin Sodium (Porcine) 5,000 unit 05/15/21 22:00 05/16/21 21:21 Heparin 5,000 Unit/1 Ml Vial SUB-Q 5,000 unit Q12HR VAMSI Administration Levofloxacin/Dextrose 750 mg in 150 mls @ 100 mls/hr 05/16/21 10:00 05/16/21 13:37 Levaquin 750mg/150ml IV 05/20/21 11:29 100 mls/hr Q24HR VAMSI Administration Protocol Methylprednisolone Sodium Succinate 40 mg 05/17/21 08:35 Methylprednisolone Sod Succinate 125 Mg/2 Ml Inj IV Q8HR VAMSI Morphine Sulfate 2 mg 05/15/21 18:56 Morphine 2 Mg/1 Ml Inj IV Q4H PRN Pain, Moderate (4-6) Ondansetron HCl 4 mg 05/15/21 18:49 Ondansetron 4 Mg/2 Ml Inj IV Q8H PRN Nausea And Vomiting Oxycodone/Acetaminophen 1 tab 05/15/21 18:56 Oxycodone /Acetaminophen 5-325mg Tab PO Q6H PRN Pain, Moderate (4-6) Sodium Chloride 10 ml 05/15/21 22:00 05/16/21 21:24 Sodium Chloride 0.9% 10 Ml Flush Syringe IV 10 ml BID VAMSI Administration Sodium Chloride 10 ml 05/15/21 18:49 Sodium Chloride 0.9% 10 Ml Flush Syringe IV PRN PRN LINE FLUSH Nutrition/Malnutrition Assess - Dietary Evaluation Nutrition/Malnutrition Findings: Nutrition Notes Start: 05/16/21 12:42 Freq: Status: Active Protocol: Document 05/16/21 12:42 DWAYNE (Rec: 05/16/21 13:00 DWAYNE [id number]) Nutrition Notes 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 Current Diet Regular Diet (since D 05/15). Labs/Tests 05/16: CO2 20, Glu 176. Pertinent Medications 05/16: Nutritionally unremarkable. Height 5 ft 5 in Weight 84.368 kg [place] Body Weight (kg) 61.81 BMI 30.9 Intake Prior to Admission Good Weight change and time frame Pt denies having loss body weight [employer]. Weight Status Obese Subjective/Other Information RD consult for skin risk assessment. No reports available on Pt's PO intake of meals at the time , will assess at F/U. Pt shows no signs of concern fo skin risk at the time, according to Physical Assessment History notes. Pt is on Nasal Canula, O2 saturation @ 98%, according to Physical Assessment History notes. Percent of energy/protein needs met: Prescribed Regular Diet provides for energy/protein needs (2,289 Kcal/89 g) during LOS. Burn Absent Trauma Absent GI Symptoms None Food Allergy No Skin Integrity/Comment Assessment WNL. Minimum of two criteria No #1 Nutrition Diagnosis No nutrition diagnosis at this time Comments: Will assess Pt's PO intake of meals at F/U. Is patient on ventilator? No Is Patient Ambulatory and/or Out of Bed Yes REE-([place]-ambulatory/OOB) [ 2165.228 [id number]] Kcal/Kg value to use for calculation 18 Approximate Energy Requirements Using 1519 kcal/Kg Calculation Used for Recommendations Kcal/kg Additional Notes Protein: 0.8-1 g/Kg AdjBW; 58- 73 g/day. Fluids: 1 ml/Kcal, or as per MD. Nutrition Intervention Follow-Up By: 05/23/21 Additional Comments Continue monitoring food tolerance, %PO intake of meals , and BM.
[2021-05-17] MEDS: IPRATROPIUM/ALBUTEROL SULFATE 3 ML AMPUL.NEB IH SCH ×7 (08:39→20:11)
[2021-05-17] MEDS: FAMOTIDINE 20 MG TAB PO SCH ×2 (10:09→21:38)
[2021-05-17] MEDS: HEPARIN 5,000 UNIT/1 ML VIAL SUB-Q SCH ×2 (10:09→21:38)
[2021-05-17] MEDS: methylPREDNISolone Sod Succinate 40 MG/1 ML INJ IV SCH ×2 (13:46→21:38)
[2021-05-18] MEDS: methylPREDNISolone Sod Succinate 40 MG/1 ML INJ IV SCH (05:54)
[2021-05-18] MEDS: IPRATROPIUM/ALBUTEROL SULFATE 3 ML AMPUL.NEB IH SCH ×2 (08:25→12:35)
[2021-05-18] MEDS: FAMOTIDINE 20 MG TAB PO SCH (09:27)
[2021-05-18] MEDS: HEPARIN 5,000 UNIT/1 ML VIAL SUB-Q SCH (09:28)
[2021-05-18 12:22] VITALS: BP 118/60
--- NOTE | 2021-05-18 12:35 | Discharge Summary ---
Providers - Providers Date of Admission: 05/15/21 18:49 Date of discharge: 05/18/21 Attending physician: NIXON TAMAYO Primary care physician: [employer] Hospitalization Condition: Fair Hospital course: --Mota PCR test negative -- Acute respiratory failure with hypoxia Current Visit: Yes Status: Acute Requiring BiPAP at the time of admission Currently patient is on 2 to 3 L nasal cannula oxygen Continue steroids, DuoNebs [id number] and as needed and IV antibiotics Supportive care, home O2 evaluation at discharge -- Acute exacerbation of bronchial asthma . Current Visit: Yes Status: Acute Nebulizers, oxygen titrate O2 sats to more than 90%, tapering dose of steroids IV antibiotics, inhalation steroids and supportive care Pulmonary evaluation if needed --Bilateral pneumonia/ community-acquired Current Visit: Yes Status: Acute on chest x-ray; bilateral pneumonia/atelectasis Empiric antibiotics,Follow cultures Oxygen titrate O2 sats to more than 90% Treat underlying asthma exacerbation -- Hypokalemia Current Visit: Yes Status: Acute Supplemented, monitor electrolytes --DVT prophylaxis Current Visit: Yes Status: Acute Subcu heparin --Obesity; BMI 31.0; Advised diet modification, exercise as tolerated And weight reduction when medically stable advance care planning Current Visit: Yes Status: Acute Plan to address problem: Disease education conducted, care plan discussed, diagnosis discussed, prognosis discussed. Patient is full code. Patient acknowledges understanding and agreement with care plan +30 minutes. Disposition: 01 HOME / SELF CARE / HOMELESS Final Discharge Diagnosis (Prints w/discharge instructions): Mota PCR test negative. Acute hypoxic respiratory failure requiring supplemental oxygen. Oxygen saturations on room air are above 94%. No need for home oxygen. Acute exacerbation of bronchial asthma. Bilateral pneumonia/community-acquired. Hypokalemia resolved. Obesity BMI 31.0/advised weight reduction Core Measure Documentation - Palliative Care Palliative Care/ Comfort Measures: Not Applicable - Core Measures Any of the following diagnoses?: none Exam - Constitutional Vitals: Temp Pulse Resp BP Pulse Ox 98.1 F 69 18 118/60 91 05/18/21 11:36 05/18/21 11:36 05/18/21 11:36 05/18/21 11:36 05/18/21 11:36 General appearance: Present: no acute distress, well-nourished - EENT Eyes: Present: PERRL, EOM intact - Neck Neck: Present: supple, normal ROM - Respiratory Respiratory effort: normal Respiratory: bilateral: diminished, negative: rales, rhonchi, wheezing - Cardiovascular Rhythm: regular Heart Sounds: Present: S1 & S2 - Extremities Extremities: no ischemia, No edema - Abdominal General gastrointestinal: Present: soft, non-tender, non-distended, normal bowel sounds - Integumentary Integumentary: Present: clear, warm - Musculoskeletal Musculoskeletal: strength equal bilaterally - Psychiatric Psychiatric: appropriate mood/affect, cooperative - Neurologic Neurologic: moves all extremities Plan Activity: advance as tolerated Diet: regular Additional Instructions: If you have worsening symptoms contact MD or go to the nearest emergency room as needed. Advised to comply with medications, diet, exercise and follow-up visits advised to see primary care physician in 1 week Follow up with: PRIMARY CARE, [Primary Care Provider] - 3-5 Days Prescriptions: Ciprofloxacin HCl 500 mg PO BID #8 predniSONE 10 mg PO QDAY #20 tab Albuterol Mdi (or & Nicu Only) [ProAir HFA Inhaler] 2 puff IH QID PRN #8.5 gram PRN Reason: Shortness Of Breath Benzonatate [Tessalon Perles] 100 mg PO Q8HR PRN #15 cap PRN Reason: Cough
== END 2021-05-18 15:55 | disposition home or self-care (01) | DRG 193 ==
LOC: ED 11:11 → 3A 18:49
PROVIDERS: ADMIT Internal Medicine; ATTEND Internal Medicine
PROC: 4A033R1 Measurement of Arterial Saturation, Peripheral, Percutaneous Approach (ICD-10-PCS; principal; 2021-05-15)
DX: J18.9 Pneumonia, unspecified organism (principal); J96.01 Acute respiratory failure with hypoxia; J45.901 Unspecified asthma with (acute) exacerbation; I10 Essential (primary) hypertension; E87.6 Hypokalemia; Z20.822 Contact with and (suspected) exposure to COVID-19; E66.9 Obesity, unspecified; Z68.31 Body mass index [BMI] 31.0-31.9, adult
CPT/HCPCS: 36415; 71045; 80053; 82803; 84484; 85025; 87040; 93005; 94640; 94644; 94760; G0378; J3490; Q0162; J1644; J1956; J2920; J2930; J3475; J7030; U0003